=== PATIENT | female | born 1975 | race Caucasian/White ===

== ENCOUNTER 2018-04-19 11:07 | Inpatient (IN) ==
[2018-04-19] MEDS ORDERED: HYDROmorphone PF Inj 0.5 MG/0.5 ML Syringe IV.PUSH ONE ×2 (12:04→12:20)
[2018-04-19] MEDS ORDERED: HYDROmorphone PF Inj 2 MG/ML Vial IV.PUSH ONE ×2 (12:10→14:44)
--- NOTE | 2018-04-19 12:10 | ED ---
HPI General Chief complaint: Abdominal Pain Stated complaint: abd pain Time Seen by Provider: 04/19/18 11:24 History of Present Illness HPI narrative: 42-year-old female with a history of hypertension and diabetes presents to the emergency department for evaluation of abdominal pain, nausea, vomiting and diarrhea. Patient states that 3 months ago she started having severe abdominal pain and was seen at [facility]. States that she was diagnosed with 2 abdominal hernias, one above her umbilicus and one below. States that at the time they told her it was incarcerated and needed surgery however they decided to have her follow-up on Saturday since it was a Saturday to have the surgery. States that her insurance changed and they did not accept her insurance and therefore she did not follow-up. States that since then the pain has persisted and been progressively worsening. States now it is painful even for her to lie on her abdomen or when her abdomen bumps the counter. States that she has had frequent nausea and vomiting for the past 2 weeks as well and has had difficulty keeping down any food or fluids. States that over the past week she has had loose watery stools. Denies any constipation. States that last night and this morning she had 2 separate episodes of acute abdominal pain which she describes as feeling like her intestines were being twisted like a balloon animal. States that it resolved on its own. States that this concerned her which is what has brought her to the emergency department today. She denies any fever, chills, chest pain, shortness of breath , dysuria. Prior abdominal surgeries include appendectomy as a child. No other complaints or concerns. PCP Dr. Guillen in [place]. Related Data Home Medications Medication Instructions Recorded Confirmed valsartan [Diovan] 320 mg PO DAILY 04/19/18 04/19/18 Allergies Allergy/AdvReac Type Severity Reaction Status Date / Time tramadol Allergy Severe Fainting Verified 04/19/18 11:43 codeine AdvReac Intermediate Vomiting Verified 04/19/18 11:43 Review of Systems ROS: all other systems reviewed are negative [facility] Medical History Medical History Diabetes (Acute) HTN (hypertension) (Acute) Surgical History Surgical History H/O tubal ligation (Acute) History of appendectomy (Acute) Social History Social History Substance History: No History of Abuse Smoking Status: Former smoker How Often Do You Have a Drink Containing Alcohol: Never Recent Travel in [facility] within the Last 8 Weeks: No Recent Out of Country Travel within the Last 8 Weeks: No Immunization History Tetanus Immunization: <5 Years Exam Narrative Exam Narrative: GENERAL: Well-nourished and well-developed pleasant patient in no acute distress who is nontoxic appearing. SKIN: Warm and dry without any obvious rashes or lesions. HEAD: Normocephalic and atraumatic. EYES: No injection, drainage, or hyphema noted. PERRLA. EOMI. ENT: No nasal drainage noted. Oropharynx is clear. NECK: Supple and the trachea is midline. CARDIOVASCULAR: Regular rate and rhythm. RESPIRATORY: Breath sounds are equal bilaterally with no accessory muscle use, wheezing, rhonchi, or crackles. GASTROINTESTINAL: Protuberant abdomen. There is a palpable hernia above the umbilicus with tenderness to palpation. No other hernias palpated. Abdomen is soft and nondistended. No guarding. MUSCULOSKELETAL: No obvious deformities, swelling, cyanosis, or ecchymosis is present throughout the upper and lower extremities. Patient has full range of motion without any signs of neurovascular compromise. Distal pulses are 2+ throughout. NEUROLOGICAL: Awake, alert, and oriented. Normal speech and gait. Cranial nerves are grossly intact. Course Initial Documented Vital Signs Temperature 97.9 F 04/19/18 11:17 Pulse Rate 102 H 04/19/18 11:17 Respiratory Rate 16 04/19/18 11:17 Blood Pressure 195/102 H 04/19/18 11:17 Pulse Oximetry 94 L 04/19/18 11:17 Last Documented Vital Signs Temperature 97.9 F 04/19/18 11:17 Pulse Rate 86 04/19/18 15:32 Respiratory Rate 18 04/19/18 15:32 Blood Pressure 192/115 H 04/19/18 15:32 Pulse Oximetry 96 04/19/18 15:32 Medical Decision Making TRINA Attestation TRINA supervised visit: Yes Attestation: I, Dr. Mesa, have reviewed the advance practice practitioner's documentation and am in agreement, met with the patient face to face, made the diagnosis, and the medical decision making was done by me. *My assessment and Findings: Patient has umbilical hernia containing fat but there is some concern for incarceration. There are nonspecific changes on CT around the edges as well as small elevation of lactate. No bowel is in the hernia. We could not reduce it in the emergency room. Dr Fuentes will admit and consider operative repair. [facility] Narrative Medical decision making narrative: 42-year-old female presents to the ED for evaluation of abdominal pain, nausea, vomiting and diarrhea with hernia. Patient is afebrile. Patient is slightly tachycardic, blood pressure is elevated. IV access is obtained, labs been drawn and sent. Patient is placed on cardiac telemetry and pulse oximetry monitoring. CT of the abdomen and pelvis has been ordered and is pending. Patient is administered fluids, Zofran 4 mg IV and Dilaudid 1 mg. CBC shows slightly elevated WBC of 11.3. Lactic acid is slightly elevated at 2.5. CMP shows slightly elevated LFTs, otherwise unremarkable. Lactic acid is slightly elevated at 2.5. Urinalysis shows RBCs, no sign of infection. CT of the abdomen and pelvis shows small umbilical hernia containing mesenteric fat with some nonspecific soft tissue changes. Patient administered 2 mg Dilaudid IV and I attempted to reduced the hernia multiple times without result. I spoke with Dr. Fuentes general surgeon who requests patient to be admitted to [facility] and he will consult on her today. I spoke with Dr. Martini resident service who accepts admission under Dr. Toscano. Medical Screen Exam Complete: Yes Emergency Medical Condition: Yes Differential Diagnosis Differential Diagnosis: hernia versus incarcerated versus strangulated versus obstruction versus colitis versus diverticulitis Lab Data Result diagrams: 04/19/18 12:25 04/19/18 12:31 POC Results POC Urine Results Negative Lab Results 04/19/18 04/19/18 04/19/18 Range/Units 12:25 12:25 12:31 WBC 11.3 H (4.0-11.0) th/mm3 RBC 4.94 (4.00-5.30) mil/mm3 Hgb 15.2 (11.6-15.3) gm/dL Hct 44.7 (35.0-46.0) % MCV 90.5 (80.0-100.0) fL MCH 30.8 (27.0-34.0) pg MCHC 34.1 (32.0-36.0) % RDW 13.2 (11.6-17.2) % Plt Count 320 (150-450) th/mm3 MPV 7.8 (7.0-11.0) fL Neut % (Auto) 61.8 (16.0-70.0) % Lymph % (Auto) 30.2 (9.0-44.0) % [place] % (Auto) 6.3 (0.0-8.0) % Eos % (Auto) 0.9 (0.0-4.0) % Baso % (Auto) 0.8 (0.0-2.0) % Neut # (Auto) 7.0 (1.8-7.7) th/mm3 Lymph # (Auto) 3.4 (1.0-4.8) th/mm3 [place] # (Auto) 0.7 (0.0-0.9) th/mm3 Eos # (Auto) 0.1 (0.0-0.4) th/mm3 Baso # (Auto) 0.1 (0.0-0.2) th/mm3 WBC Differential . Differential Comment Auto diff final Sodium 137 (136-145) meq/L Potassium 4.1 (3.5-5.1) meq/L Chloride 104 (98-107) meq/L Carbon Dioxide 23.9 (21.0-32.0) meq/L Anion Gap 9 (5-15) meq/L BUN 8 (7-18) mg/dL Creatinine 0.68 (0.50-1.00) mg/dL Estimated GFR Greater than 89 (>89) mL/min Random Glucose 134 H (74-106) mg/dL Lactic Acid (0.4-2.0) mmol/L Calcium 8.7 (8.5-10.1) mg/dL Total Bilirubin 0.5 (0.2-1.0) mg/dL AST 40 H (15-37) U/L ALT 55 H (10-53) U/L Alkaline Phosphatase 107 (45-117) U/L Total Protein 7.5 (6.4-8.2) g/dL Albumin 3.7 (3.4-5.0) g/dL Lipase 67 L (73-393) U/L Urine Color Yellow (Yellw/Straw) Urine Clarity Hazy H (Clear) Urine pH 5.0 (5.0-8.5) Ur Specific [place] 1.023 (1.002-1.035) Urine Protein Negative (Neg-Trace) mg/dL Urine Glucose (UA) 50 (Negative) mg/dL Urine Ketones Negative (Negative) mg/dL Urine Occult Blood Large H (Negative) Urine Nitrate Negative (Negative) Urine Bilirubin Negative (Negative) Urine Urobilinogen Less than 2 (Less than 2) mg/dL Ur Leukocyte Esterase Negative (Negative) Urine RBC 116 H (0-3) /hpf Urine WBC 1 (0-5) /hpf Ur Squamous Epith Cells 6 (0-5) /hpf Urine Bacteria Rare H (None) /hpf Urine Mucus Few H (Occasional) /lpf Micro UA Comment Culture not ind Ur Microscopic Review Not Reportable Urine Culture Comments Culture not ind 04/19/18 Range/Units 12:32 WBC (4.0-11.0) th/mm3 RBC (4.00-5.30) mil/mm3 Hgb (11.6-15.3) gm/dL Hct (35.0-46.0) % MCV (80.0-100.0) fL MCH (27.0-34.0) pg MCHC (32.0-36.0) % RDW (11.6-17.2) % Plt Count (150-450) th/mm3 MPV (7.0-11.0) fL Neut % (Auto) (16.0-70.0) % Lymph % (Auto) (9.0-44.0) % [place] % (Auto) (0.0-8.0) % Eos % (Auto) (0.0-4.0) % Baso % (Auto) (0.0-2.0) % Neut # (Auto) (1.8-7.7) th/mm3 Lymph # (Auto) (1.0-4.8) th/mm3 [place] # (Auto) (0.0-0.9) th/mm3 Eos # (Auto) (0.0-0.4) th/mm3 Baso # (Auto) (0.0-0.2) th/mm3 WBC Differential Differential Comment Sodium (136-145) meq/L Potassium (3.5-5.1) meq/L Chloride (98-107) meq/L Carbon Dioxide (21.0-32.0) meq/L Anion Gap (5-15) meq/L BUN (7-18) mg/dL Creatinine (0.50-1.00) mg/dL Estimated GFR (>89) mL/min Random Glucose (74-106) mg/dL Lactic Acid 2.5 H (0.4-2.0) mmol/L Calcium (8.5-10.1) mg/dL Total Bilirubin (0.2-1.0) mg/dL AST (15-37) U/L ALT (10-53) U/L Alkaline Phosphatase (45-117) U/L Total Protein (6.4-8.2) g/dL Albumin (3.4-5.0) g/dL Lipase (73-393) U/L Urine Color (Yellw/Straw) Urine Clarity (Clear) Urine pH (5.0-8.5) Ur Specific [place] (1.002-1.035) Urine Protein (Neg-Trace) mg/dL Urine Glucose (UA) (Negative) mg/dL Urine Ketones (Negative) mg/dL Urine Occult Blood (Negative) Urine Nitrate (Negative) Urine Bilirubin (Negative) Urine Urobilinogen (Less than 2) mg/dL Ur Leukocyte Esterase (Negative) Urine RBC (0-3) /hpf Urine WBC (0-5) /hpf Ur Squamous Epith Cells (0-5) /hpf Urine Bacteria (None) /hpf Urine Mucus (Occasional) /lpf Micro UA Comment Ur Microscopic Review Urine Culture Comments Imaging Data Radiologist's impression: Abdomen/Pelvis CT 04/19/18 12:02 CONCLUSION: 1. Small umbilical hernia containing mesenteric fat with some nonspecific soft tissue changes. 2. Diffuse fatty infiltration of the liver. 3. There appear to be some stones in the gallbladder without biliary tract obstruction.. Discharge Plan Discharge Disposition Patient Disposition: 30 Still Patient Discharge Details Diagnosis: Incarcerated hernia Physicians Team ED Provider: Jonathan Mesa ED Midlevel Provider: Shu Botello Primary Care Provider: Yvon Guillen Rxs /Orders / Referrals /Forms Prescriptions: No Action valsartan [Diovan] 320 mg Tablet 320 mg PO DAILY RF: 0 Discharge Interventions Interventions: Vital Signs Last Done: 04/19/18 15:32 Status ED Status: With Doctor
[2018-04-19] MEDS ORDERED: Sod Chloride 0.9% Inj 1,000 ML IV.SIG SCH (12:15)
[2018-04-19 12:53] LABS: Baso # (Auto) 0.1 th/mm3 (0.0-0.2); Baso % (Auto) 0.8 % (0.0-2.0); Eos # (Auto) 0.1 th/mm3 (0.0-0.4); Eos % (Auto) 0.9 % (0.0-4.0); Hematocrit 44.7 % (35.0-46.0); Hemoglobin 15.2 gm/dL (11.6-15.3); Lymph # (Auto) 3.4 th/mm3 (1.0-4.8); Lymph % (Auto) 30.2 % (9.0-44.0); Mean Corpuscular HGB Conc 34.1 % (32.0-36.0); Mean Corpuscular Hemoglobin 30.8 pg (27.0-34.0); Mean Corpuscular Volume 90.5 fL (80.0-100.0); Mean Platelet Volume 7.8 fL (7.0-11.0); Mono # (Auto) 0.7 th/mm3 (0.0-0.9); Mono % (Auto) 6.3 % (0.0-8.0); Neut % (Auto) 61.8 % (16.0-70.0); Platelet Count 320 th/mm3 (150-450); Red Blood Count 4.94 mil/mm3 (4.00-5.30); Red Cell Distribution Width 13.2 % (11.6-17.2); White Blood Count 11.3 th/mm3 (4.0-11.0)
[2018-04-19 13:02] LABS: Bacteria,Urine Rare /hpf; Bilirubin,Urine Negative (Negative); Clarity,Urine Hazy (Clear); Color,Urine Yellow (Yellw/Straw); Glucose,Urine (UA) 50 mg/dL (Negative); Leukocyte Esterase,Urine Negative (Negative); Mucus,Urine Few /lpf (Occasional); Nitrite,Urine Negative (Negative); Specific Gravity,Urine 1.023 (1.002-1.035); Squamous Epithelial Cell,Urine 6 /hpf (0-5)
[2018-04-19 13:13] LABS: Alkaline Phosphatase 107 U/L (45-117); Total Protein 7.5 g/dL (6.4-8.2)
[2018-04-19 13:14] LABS: Alanine Aminotransferase 55 U/L (10-53); Albumin 3.7 g/dL (3.4-5.0); Anion Gap 9 meq/L (5-15); Aspartate Aminotransferase 40 U/L (15-37); Blood Urea Nitrogen 8 mg/dL (7-18); Calcium 8.7 mg/dL (8.5-10.1); Carbon Dioxide 23.9 meq/L (21.0-32.0); Chloride 104 meq/L (98-107); Glomerular Filtration Rate Greater Than 89 mL/min (>89); Glucose,Random 134 mg/dL (74-106); Lipase 67 U/L (73-393); Potassium 4.1 meq/L (3.5-5.1); Sodium 137 meq/L (136-145)
--- NOTE | 2018-04-19 14:09 | CT ---
EXAM DATE: 04/19/2018 1:20 PM EDT AGE/SEX: 42 years / Female INDICATIONS: Worsening lower abdomen pain for three days. CLINICAL DATA: This is the patient's initial encounter. Patient reports that signs and symptoms have been present for 3 days and indicates a pain score of 7/10. MEDICAL/SURGICAL HISTORY: Diabetes. Hypertension. Appendectomy. Tubal ligation. ORAL CONTRAST: No oral contrast ingested. RADIATION DOSE: 15.94 CTDI (mGy) COMPARISON: No prior exams available for comparison. TECHNIQUE: Multiple contiguous axial images were obtained through the abdomen and pelvis following b olus infusion of 96 ml Omnipaque 350 (iohexol) nonionic water-soluble contrast as a single exam dos e. No oral contrast ingested. Using automated exposure control and adjustment of the mA and/or kV ac cording to patient size, radiation dose was kept as low as reasonably achievable to obtain optimal di agnostic quality images. DICOM format image data is available electronically for review and comparis on. FINDINGS: Lower Lungs: The visualized lower lungs are clear. Liver: The liver has a homogeneous density without space-occupying lesion. There is diffuse fatty inf iltration throughout the liver. There is no dilation of the biliary tree. There appear to be some sto eliseo in the gallbladder without any surrounding inflammatory changes. The gallbladder is contracted. Spleen: Homogeneous density without enlargement. Pancreas: Unremarkable without mass or calcification. Kidneys: Normal in size and shape. No evidence of mass or hydronephrosis. 9 mm benign cyst left kidn ey. Adrenal Glands: Unremarkable. Aorta: The aorta and proximal iliac vessels are grossly unremarkable without aneurysmal dilation. Bowel/Mesentery: The bowel loops are grossly unremarkable. The cecum and sigmoid colon have a normal configuration. There is stool throughout the colon. No inflammatory changes are seen. No free fluid or free air is demonstrated. Abdominal Wall: There is a small umbilical hernia containing mesenteric fat. There is nonspecific so ft tissue changes associated with the hernia. Retroperitoneum: No evidence of adenopathy in the retrocrural, para-aortic, or deep pelvic regions. Bladder: Contours are smooth. Reproductive Organs: No abnormal masses or calcifications seen. Inguinal: The inguinal region is unremarkable without evidence of adenopathy. Bony Structures: Mild degenerative changes. CONCLUSION: 1. Small umbilical hernia containing mesenteric fat with some nonspecific soft tissue changes. 2. Diffuse fatty infiltration of the liver. 3. There appear to be some stones in the gallbladder without biliary tract obstruction.. Electronically signed by: Jorge Guzman MD 04/19/2018 2:08 PM EDT
--- NOTE | 2018-04-19 16:32 | P.HPFP ---
History of Present Illness Primary Care Physician: Yvon Guillen <Andrew Toscano K - 04/19/18 21:54> Yvon Guillen <Stephanie Martini T - 04/19/18 16:32> History of Present Illness: 42-year-old female with diabetes, hypertension, and known history of a umbilical hernia presents to the ED with worsening abdominal pain. Here with her ex-. Patient states that a couple months ago she was admitted at [facility] in [facility]. CT scan there demonstrated that she had 2 abdominal hernias. General surgery was consulted at that time was told to follow-up with them outpatient. Reports that she was unable to see them as an outpatient due to insurance issues. She states that her abdomen has been tender to the touch and has been worsening. She also has had nausea and vomiting for the last 2 weeks every day. She reports diarrhea as well for the last couple of days. Yesterday she felt like her stomach was getting "twisted like an animal balloon and felt so much pain." She decided that she did not want to come to the ED last night because of the long wait. She continues to have worsening abdominal pain and states that she could not wait any longer. She endorses chronic fatigue and weight gain (60lb gain since April). She denies fevers, night sweats, chills, chest pain, and shortness of breath. PMHx: Cervical stenosis C5-C7- bulging discs DM HTN PSHx: appendectomy tubal ligation Meds: Divan 320mg PO daily for blood pressure Metformin BID- couldn't get refill- only took 2 weeks worth Allergies: Codeine- projectile vomiting and tramadol, fainted FHx: Mom -alive Dad-prostate cancer- 80s HTN DM Hypothyroidsm Live: Live with ex- and 21 yr old son Unemployed Quit 2 years ago- smoke 3/4 pack a day, started at 14 years of age Alcohol use- occasional Denies Illicit drug use <Stephanie Martini T - 04/19/18 18:37> - Diagnosis (1) Diabetes (2) Hypertension (3) Incarcerated hernia <Andrew Toscano K - 04/19/18 21:54> (1) Diabetes (2) Hypertension (3) Incarcerated hernia <Stephanie Martini - 04/19/18 18:43> Inpatient Certification: I certify that the inpatient services were ordered in accordance with Medicare regulations governing the order. This includes certification that hospital inpatient services are reasonable and necessary and in the case of services not specified as inpatient-only under 42 CFR 419.22(n), that they are appropriately provided as inpatient services in accordance to with the 2-midnight benchmark under 43 CFR 412.3(e) <Andrew Toscano 04/19/18 21:53> Review of Systems Constitutional: Reports weight gain, Denies fever(s), Denies night sweats <Vini Stephaniealmaz Bender 04/19/18 18:42> Ears, Nose, Mouth, and Throat: Reports nasal congestion <Stephanie Martini 18:42> Cardiovascular: Denies chest pain, Denies shortness of breath <ViniStephanietisha Bender 04/19/18 18:42> Respiratory: Denies cough, Denies shortness of breath <Stephanie Martini 12/30 18:42> Gastrointestinal: Reports abdominal pain, Reports vomiting, Reports other <Vini Stephaniealmaz Bender 04/19/18 18:42> Genitourinary: Denies difficulty urinating <Stephanie Martini 04/19/18 18:42> Musculoskeletal: Denies joint pain <Stephanie Martini 04/19/18 18:42> Skin/Breast: Denies rash <ViniStephanietisha Bender 04/19/18 18:42> PMFSH - History History Provided By: Patient, Family Member <Stephanie Martini 04/19/18 16:32 > - Medical History Medical History: Medical History (Last Reviewed 04/19/18 @ 17:14 by Terrence Fuentes MD) Diabetes HTN (hypertension) <Andrew Toscano 04/19/18 21:53> Medical History (Last Reviewed 04/19/18 @ 17:14 by Terrence Fuentes MD) Diabetes HTN (hypertension) <Stephanie Martini 04/19/18 18:37> - Surgical History Surgical History: Surgical History (Last Reviewed 04/19/18 @ 17:14 by Terrence Fuentes MD) H/O tubal ligation History of appendectomy <Andrew Toscano - 04/19/18 21:53> Surgical History (Last Reviewed 04/19/18 @ 17:14 by Terrence Fuentes MD) H/O tubal ligation History of appendectomy <Stephanie Martini - 04/19/18 18:37> - Family History Family History: Family History (Last Updated 04/19/18 @ 18:37 by Stephanie Martini MD, R2) Other Diabetes Hypertension <Andrew Toscano 04/19/18 21:53> Family History (Last Updated 04/19/18 @ 18:37 by Stephanie Martini MD, R2) Other Diabetes Hypertension <Stephanie Martini - 04/19/18 18:42> - Tobacco History Tobacco Use In Past 30 Days: No <Stephanie Martini - 04/19/18 16:32> Smoking Status: Former smoker <Stephanie Martini - 04/19/18 16:32> - Alcohol History How Often Do You Have a Drink Containing Alcohol: Never <Stephanie Martiin - 16:32> - Substance Use History Substance History: No History of Abuse <Stephanie Martini - 04/19/18 16:32> - Travel History Recent Travel in the [place] Within the Last 8 Weeks: No <Stephanie Martini 04/19 16:32> Recent Travel Out of the Country Within the Last 8 Weeks: No <Stephanie Martini - 04/19/18 16:32> - Immunization History Tetanus Immunization: <5 Years <Stephanie Martini 04/19/18 16:32> Medications and Allergies Allergies Allergy/AdvReac Type Severity Reaction Status Date / Time tramadol Allergy Severe Fainting Verified 04/19/18 11:43 codeine AdvReac Intermediate Vomiting Verified 04/19/18 11:43 <Andrew Toscano 04/19/18 21:54> Home Medications Medication Instructions Recorded Confirmed Type valsartan [Diovan] 320 mg PO DAILY 04/19/18 04/19/18 History <Andrew Toscano 04/19/18 21:54> Active Medications: Active Medications Acetaminophen (Tylenol) 650 mg PO Q6HR PRN PRN Reason: PAIN SCALE 1 TO 2 Hydrocodone Bitart/Acetaminophen ([place] 5/325) 1 tab PO Q6H PRN PRN Reason: PAIN 1-10 AND/OR FEVER >101F Clonidine HCl (Catapres) 0.1 mg PO Q6H PRN PRN Reason: SEE LABEL COMMENTS Dextrose (D50w Vial) 50 ml IV.PUSH UNSCH PRN PRN Reason: PER HYPOGLYCEMIA PROTOCOL Glucagon (Glucagon Inj) 1 mg OTHER PRN PRN PRN Reason: for Hypoglycemia Protocol Hydromorphone HCl (Dilaudid Pf Inj) 0.5 mg IV.PUSH Q3H PRN PRN Reason: PAIN 3-5; IF UABLE TO TAKE PO Hydromorphone HCl (Dilaudid Pf Inj) 1 mg IV.PUSH Q3H PRN PRN Reason: PAIN 6-10;IF UNABLE TO TAKE PO Sodium Chloride (Ns Inj) 1,000 mls @ 0 mls/hr IV.SIG BOLUS RAIMUNDO Last Infusion: 04/19/18 13:40 Dose: Infused Sodium Chloride (Ns Inj) 1,000 mls @ 130 mls/hr IV.CONT .Q7H42M RAIMUNDO Last Admin: 04/19/18 19:15 Dose: 130 mls/hr Insulin Aspart (Novolog Insulin Correctional Sugar Inj) 0 unit SQ ACHS RAIMUNDO; Protocol Last Admin: 04/19/18 21:52 Dose: 3 unit Miscellaneous Information ([facility] [place] [facility]) 1 each OTHER UNSCH PRN PRN Reason: SEE LABEL COMMENTS Stop: 04/20/18 19:04 Naloxone HCl (Narcan Inj) 0.4 mg IV.PUSH UNSCH PRN PRN Reason: SEE LABEL COMMENTS Ondansetron HCl (Zofran Inj) 4 mg IV.PUSH Q6H PRN PRN Reason: NAUSEA OR VOMITING Sodium Chloride (Ns Flush) 2 ml IV.FLUSH PRN PRN PRN Reason: FLUSH AFTER USING IV ACCESS Last Admin: 04/19/18 12:40 Dose: 2 ml Valsartan (Diovan) 320 mg PO DAILY RAIMUNDO Last Admin: 04/19/18 21:14 Dose: Not Given <Andrew Toscano 04/19/18 21:54> Active Medications Sodium Chloride (Ns Inj) 1,000 mls @ 0 mls/hr IV.SIG BOLUS RAIMUNDO Last Infusion: 04/19/18 13:40 Dose: Infused Sodium Chloride (Ns Flush) 2 ml IV.FLUSH PRN PRN PRN Reason: FLUSH AFTER USING IV ACCESS Last Admin: 04/19/18 12:40 Dose: 2 ml <Stephanie Martini Yulia T - 04/19/18 16:32> Exam Vital signs: Vital Signs 04/19/18 11:17 04/19/18 12:38 04/19/18 15:32 Temperature 97.9 F Pulse Rate 102 H 90 86 Respiratory Rate 16 20 18 Blood Pressure 195/102 H 175/91 H 192/115 H Pulse Oximetry 94 L 95 96 04/19/18 16:00 04/19/18 17:08 04/19/18 17:27 Temperature Pulse Rate 92 H 88 Respiratory Rate 18 16 Blood Pressure 145/75 H 161/97 H Pulse Oximetry 95 96 04/19/18 18:47 04/19/18 19:15 04/19/18 20:00 Temperature 97.8 F 97.7 F 97.7 F Pulse Rate 101 H 84 83 Respiratory Rate 16 16 18 Blood Pressure 122/95 H 153/73 H 139/67 Pulse Oximetry 99 96 93 L Intake & Output 04/19/18 04/19/18 04/20/18 06:59 18:59 06:59 Intake Total 1750 / 1750 100 / 100 Output Total Balance 1740 / 1740 100 / 100 Weight 90.718 kg Intake: IV 1050 / 1050 NS Inj 1,000 ML @ Wide Open IV. 1000 / 1000 SIG BOLUS RAIMUNDO Rx#:[id number] Ancef 2 GM Premix Inj 2 gm In 50 / 50 50 ml @ 0 mls/hr IV.SIG .STK- MED ONE Rx#:[id number] Anesthesia Amount 700 / 700 Other 100 / 100 Output: Estimated Blood Loss <Andrew Toscano - 04/19/18 21:54> Vital Signs 04/19/18 11:17 04/19/18 12:38 04/19/18 15:32 Temperature 97.9 F Pulse Rate 102 H 90 86 Respiratory Rate 16 20 18 Blood Pressure 195/102 H 175/91 H 192/115 H Pulse Oximetry 94 L 95 96 Intake & Output 04/18/18 04/19/18 04/19/18 18:59 06:59 18:59 Intake Total 1000 / 1000 Balance 1000 / 1000 Weight 90.718 kg Intake: IV 999 / 1000 NS Inj 1,000 ML @ Wide Open IV. 1000 / 1000 SIG BOLUS RAIMUNDO Rx#:[id number] <Stephanie Martini T - 04/19/18 16:32> Narrative: General: Obese, no acute distress Skin: Warm and dry HEENT: PERRLA, EOMI Neck: No lymphadenopathy Cardiovascular: Regular rate and rhythm, no murmurs rubs or gallops Respiratory: Clear to auscultation bilaterally no wheezes or crackles Abdomen: Distended abdomen, small hard hernia palpable over the umbilicus, slightly tender, soft, no guarding Extremities: No cyanosis or edema <ViniStephanie Bender T - 04/19/18 18:42> Results - Labs Result diagrams: 04/19/18 12:25 04/19/18 12:31 <Andrew Toscano K - 04/19/18 21:54> Abnormal lab results 04/19/18 04/19/18 04/19/18 Range/Units 12:25 12:25 12:31 WBC 11.3 H (4.0-11.0) th/mm3 POC Glucose (68-110) mg/dl Random Glucose 134 H (74-106) mg/dL Lactic Acid (0.4-2.0) mmol/L AST 40 H (15-37) U/L ALT 55 H (10-53) U/L Lipase 67 L (73-393) U/L Urine Clarity Hazy H (Clear) Urine Occult Blood Large H (Negative) Urine RBC 116 H (0-3) /hpf Urine Bacteria Rare H (None) /hpf Urine Mucus Few H (Occasional) /lpf 04/19/18 04/19/18 Range/Units 12:32 21:40 WBC (4.0-11.0) th/mm3 POC Glucose 218 H (68-110) mg/dl Random Glucose (74-106) mg/dL Lactic Acid 2.5 H (0.4-2.0) mmol/L AST (15-37) U/L ALT (10-53) U/L Lipase (73-393) U/L Urine Clarity (Clear) Urine Occult Blood (Negative) Urine RBC (0-3) /hpf Urine Bacteria (None) /hpf Urine Mucus (Occasional) /lpf Short CBC 04/19/18 Range/Units 12:25 WBC 11.3 H (4.0-11.0) th/mm3 Hgb 15.2 (11.6-15.3) gm/dL Hct 44.7 (35.0-46.0) % Plt Count 320 (150-450) th/mm3 BMP 04/19/18 12:31 Sodium 137 Potassium 4.1 Chloride 104 Carbon Dioxide 23.9 BUN 8 Creatinine 0.68 Calcium 8.7 Liver Function 04/19/18 Range/Units 12:31 Total Bilirubin 0.5 (0.2-1.0) mg/dL AST 40 H (15-37) U/L ALT 55 H (10-53) U/L Alkaline Phosphatase 107 (45-117) U/L Albumin 3.7 (3.4-5.0) g/dL Urine 04/19/18 Range/Units 12:25 Urine Color Yellow (Yellw/Straw) Urine Clarity Hazy H (Clear) Urine pH 5.0 (5.0-8.5) Ur Specific [place] 1.023 (1.002-1.035) Urine Protein Negative (Neg-Trace) mg/dL Urine Glucose (UA) 50 (Negative) mg/dL <Andrew Toscano K - 04/19/18 21:54> Abnormal lab results 04/19/18 04/19/18 04/19/18 Range/Units 12:25 12:25 12:31 WBC 11.3 H (4.0-11.0) th/mm3 Random Glucose 134 H (74-106) mg/dL Lactic Acid (0.4-2.0) mmol/L AST 40 H (15-37) U/L ALT 55 H (10-53) U/L Lipase 67 L (73-393) U/L Urine Clarity Hazy H (Clear) Urine Occult Blood Large H (Negative) Urine RBC 116 H (0-3) /hpf Urine Bacteria Rare H (None) /hpf Urine Mucus Few H (Occasional) /lpf 04/19/18 Range/Units 12:32 WBC (4.0-11.0) th/mm3 Random Glucose (74-106) mg/dL Lactic Acid 2.5 H (0.4-2.0) mmol/L AST (15-37) U/L ALT (10-53) U/L Lipase (73-393) U/L Urine Clarity (Clear) Urine Occult Blood (Negative) Urine RBC (0-3) /hpf Urine Bacteria (None) /hpf Urine Mucus (Occasional) /lpf Short CBC 04/19/18 Range/Units 12:25 WBC 11.3 H (4.0-11.0) th/mm3 Hgb 15.2 (11.6-15.3) gm/dL Hct 44.7 (35.0-46.0) % Plt Count 320 (150-450) th/mm3 BMP 04/19/18 12:31 Sodium 137 Potassium 4.1 Chloride 104 Carbon Dioxide 23.9 BUN 8 Creatinine 0.68 Calcium 8.7 Liver Function 04/19/18 Range/Units 12:31 Total Bilirubin 0.5 (0.2-1.0) mg/dL AST 40 H (15-37) U/L ALT 55 H (10-53) U/L Alkaline Phosphatase 107 (45-117) U/L Albumin 3.7 (3.4-5.0) g/dL Urine 04/19/18 Range/Units 12:25 Urine Color Yellow (Yellw/Straw) Urine Clarity Hazy H (Clear) Urine pH 5.0 (5.0-8.5) Ur Specific [place] 1.023 (1.002-1.035) Urine Protein Negative (Neg-Trace) mg/dL Urine Glucose (UA) 50 (Negative) mg/dL <Stephanie Martini T - 04/19/18 16:32> - Imaging Impressions Abdomen/Pelvis CT 04/19/18 12:02 CONCLUSION: 1. Small umbilical hernia containing mesenteric fat with some nonspecific soft tissue changes. 2. Diffuse fatty infiltration of the liver. 3. There appear to be some stones in the gallbladder without biliary tract obstruction.. <Andrew Toscano K - 04/19/18 21:54> Impressions Abdomen/Pelvis CT 04/19/18 12:02 CONCLUSION: 1. Small umbilical hernia containing mesenteric fat with some nonspecific soft tissue changes. 2. Diffuse fatty infiltration of the liver. 3. There appear to be some stones in the gallbladder without biliary tract obstruction.. <Stephanie Martini T - 04/19/18 16:32> Caprini VTE Risk Assessment Caprini VTE Risk Assessment: No/Low Risk (score <= 1) <Thuan Martinitisha Bender T - 12/30 18:53> Caprini Risk Assessment Model: Point Value = 1 Point Value = 2 Point Value = 3 Point Value = 5 Age 41-60 Minor surgery BMI > 25 kg/m2 Swollen legs Varicose veins or History of unexplained or recurrent spontaneous Oral contraceptives or hormone replacement Sepsis (< 1 month) Serious lung disease, including pneumonia (< 1 month) Abnormal pulmonary function Acute myocardial infarction Congestive heart failure (< 1 month) History of inflammatory bowel disease Medical patient at bed rest Age 61-74 Arthroscopic surgery Major open surgery (> 45 min) Laparoscopic surgery (> 45 min) Malignancy Confined to bed (> 72 hours) Immobilizing plaster cast Central venous access Age >= 75 History of VTE Family history of VTE Factor V Leiden Prothrombin [id number] Lupus anticoagulant Anticardiolipin antibodies Elevated serum homocysteine Heparin-induced thrombocytopenia Other congenital or acquired thrombophilia Stroke (< 1 month) Elective arthroplasty Hip, pelvis, or leg fracture Acute spinal cord injury (< 1 month) <Andrew Toscano K - 04/19/18 21:54> Point Value = 1 Point Value = 2 Point Value = 3 Point Value = 5 Age 41-60 Minor surgery BMI > 25 kg/m2 Swollen legs Varicose veins or History of unexplained or recurrent spontaneous Oral contraceptives or hormone replacement Sepsis (< 1 month) Serious lung disease, including pneumonia (< 1 month) Abnormal pulmonary function Acute myocardial infarction Congestive heart failure (< 1 month) History of inflammatory bowel disease Medical patient at bed rest Age 61-74 Arthroscopic surgery Major open surgery (> 45 min) Laparoscopic surgery (> 45 min) Malignancy Confined to bed (> 72 hours) Immobilizing plaster cast Central venous access Age >= 75 History of VTE Family history of VTE Factor V Leiden Prothrombin [id number] Lupus anticoagulant Anticardiolipin antibodies Elevated serum homocysteine Heparin-induced thrombocytopenia Other congenital or acquired thrombophilia Stroke (< 1 month) Elective arthroplasty Hip, pelvis, or leg fracture Acute spinal cord injury (< 1 month) <ViniStephanie Bender T - 04/19/18 18:53> Prophylaxis Regimen: Total Risk Factor Score Risk Level Prophylaxis Regimen 0-1 Low Early ambulation 2 Moderate Order ONE of the following: *Sequential Compression Device (SCD) *Heparin 5000 units SQ BID 3-4 Higher Order ONE of the following medications: *Heparin 5000 units SQ TID *Enoxaparin/Lovenox 40 mg SQ daily (WT < 150 kg, CrCl > 30 mL/min) *Enoxaparin/Lovenox 30 mg SQ daily (WT < 150 kg, CrCl > 10-29 mL/min) *Enoxaparin/Lovenox 30 mg SQ BID (WT < 150 kg, CrCl > 30 mL/min) AND/OR *Sequential Compression Device (SCD) 5 or more Highest Order ONE of the following medications: *Heparin 5000 units SQ TID (Preferred with Epidurals) *Enoxaparin/Lovenox 40 mg SQ daily (WT < 150 kg, CrCl > 30 mL/min) *Enoxaparin/Lovenox 30 mg SQ daily (WT < 150 kg, CrCl > 10-29 mL/min) *Enoxaparin/Lovenox 30 mg SQ BID (WT < 150 kg, CrCl > 30 mL/min) AND *Sequential Compression Device (SCD) <Andrew Toscano - 04/19/18 21:54> Total Risk Factor Score Risk Level Prophylaxis Regimen 0-1 Low Early ambulation 2 Moderate Order ONE of the following: *Sequential Compression Device (SCD) *Heparin 5000 units SQ BID 3-4 Higher Order ONE of the following medications: *Heparin 5000 units SQ TID *Enoxaparin/Lovenox 40 mg SQ daily (WT < 150 kg, CrCl > 30 mL/min) *Enoxaparin/Lovenox 30 mg SQ daily (WT < 150 kg, CrCl > 10-29 mL/min) *Enoxaparin/Lovenox 30 mg SQ BID (WT < 150 kg, CrCl > 30 mL/min) AND/OR *Sequential Compression Device (SCD) 5 or more Highest Order ONE of the following medications: *Heparin 5000 units SQ TID (Preferred with Epidurals) *Enoxaparin/Lovenox 40 mg SQ daily (WT < 150 kg, CrCl > 30 mL/min) *Enoxaparin/Lovenox 30 mg SQ daily (WT < 150 kg, CrCl > 10-29 mL/min) *Enoxaparin/Lovenox 30 mg SQ BID (WT < 150 kg, CrCl > 30 mL/min) AND *Sequential Compression Device (SCD) <Stephanie Martini 04/19/18 16:32> Assessment and Plan - Assessment (1) Diabetes Code(s): E11.9 - Type 2 diabetes mellitus without complications Status: Acute (2) Hypertension Code(s): I10 - Essential (primary) hypertension Status: Acute (3) Incarcerated hernia Code(s): K46.0 - Unspecified abdominal hernia with obstruction, without gangrene Status: Acute <Andrew Toscano 04/19/18 21:54> (1) Diabetes Code(s): E11.9 - Type 2 diabetes mellitus without complications Status: Acute (2) Hypertension Code(s): I10 - Essential (primary) hypertension Status: Acute (3) Incarcerated hernia Code(s): K46.0 - Unspecified abdominal hernia with obstruction, without gangrene Status: Acute <Stephanie Martini 04/19/18 18:43> - Assessment and Plan 42-year-old female with diabetes and hypertension presents to the ED with worsening abdominal pain, found to have incarcerated umbilical hernia. General surgery consulted. Incarcerated hernia: -Vitals stable -WBC elevated 11.3 and LA 2.5 -AST of 40, ALT of 55, alk phos of 107, T bili of 0.5 -CT of abdomen demonstrate small umbilical hernia containing mesenteric fat with some nonspecific soft tissue changes. Diffuse fatty infiltration of the liver. There appears to be some stones in the gallbladder without biliary tract obstruction. -General surgery consulted, ER physician spoke with , patient will be taken to the OR tonight -N.p.o. -Maintenance fluids -Pain control with Dilaudid Diabetes: -Patient reports being prescribed metformin, however unable to afford -Accu-Cheks -Low-dose sliding scale -Hypoglycemic protocol in place Hypertension: -Continue home Valsartan 320mg daily -Clonidine 0.1mg PRN as needed for BP > 180/100 Diet: N.p.o. Fluids: NS fluid 130mls/hr Vitals every 4, monitor I's and O's DVTppx: SCDs, Patient will be started on Lovenox tomorrow <Stephanie Martini 04/19/18 18:53> - Attending Attestation Discussed with resident and reviewed documentation. agree with plan. <Andrew Toscano - 04/19/18 21:53>
[2018-04-19] MEDS ORDERED: Acetaminophen 325 MG Tablet PO PRN (17:06)
[2018-04-19] MEDS ORDERED: Naloxone Inj 0.4 MG/ML Vial IV.PUSH PRN (17:06)
[2018-04-19] MEDS ORDERED: HYDROmorphone PF Inj 2 MG/ML Vial IV.PUSH PRN ×2 (17:06)
[2018-04-19] MEDS ORDERED: Bupivacaine/Epinephrine Inj 0.25% 50 ML Vial ONE (17:07)
--- NOTE | 2018-04-19 17:12 | P.HP ---
History of Present Illness Service: CONSULTATION NOTE FOR SURGICAL ATTENDING, DR. MARCIANO FUENTES Primary Care Physician: Yvon Guillen Chief Complaint: Abdominal pain - Diagnosis (1) Incarcerated hernia Inpatient Certification: I certify that the inpatient services were ordered in accordance with Medicare regulations governing the order. This includes certification that hospital inpatient services are reasonable and necessary and in the case of services not specified as inpatient-only under 42 CFR 419.22(n), that they are appropriately provided as inpatient services in accordance to with the 2-midnight benchmark under 43 CFR 412.3(e) Estimated Total Length of Stay (Days): 2 Plans for Post Hospital Care: Home Review of Systems Patient has had about a 2-month history of intermittent umbilical pain she was evaluated at an outside hospital for umbilical pain found to have a hernia but for insurance reasons things were delayed and now the pain has become unbearable where she came into the emergency room. Been on and off for some time exacerbated recently CT shows incarcerated umbilical hernia. Also shown is incidental gallstone. surgery was consulted for evaluation All other systems reviewed negative except as stated in HPI PMFSH - History History Provided By: Patient, Family Member - Medical History Medical History: Medical History (Last Reviewed 04/19/18 @ 17:09 by Marciano Fuentes MD) Diabetes HTN (hypertension) - Surgical History Surgical History: Surgical History (Last Reviewed 04/19/18 @ 17:09 by Marciano Fuentes MD) H/O tubal ligation History of appendectomy - Social History I have reviewed the patient's Social History: Yes - Tobacco History Tobacco Use In Past 30 Days: No Smoking Status: Former smoker - Alcohol History How Often Do You Have a Drink Containing Alcohol: Never - Substance Use History Substance History: No History of Abuse - Travel History Recent Travel in the [facility] Within the Last 8 Weeks: No Recent Travel Out of the Country Within the Last 8 Weeks: No - Immunization History Tetanus Immunization: <5 Years Medications and Allergies Active Medications: Active Medications Sodium Chloride (Ns Inj) 1,000 mls @ 0 mls/hr IV.SIG BOLUS RAIMUNDO Last Infusion: 04/19/18 13:40 Dose: Infused Sodium Chloride (Ns Inj) 1,000 mls @ 130 mls/hr IV.CONT .Q7H42M RAIMUNDO Sodium Chloride (Ns Flush) 2 ml IV.FLUSH PRN PRN PRN Reason: FLUSH AFTER USING IV ACCESS Last Admin: 04/19/18 12:40 Dose: 2 ml Allergies Allergy/AdvReac Type Severity Reaction Status Date / Time tramadol Allergy Severe Fainting Verified 04/19/18 11:43 codeine AdvReac Intermediate Vomiting Verified 04/19/18 11:43 Home Medications Medication Instructions Recorded Confirmed Type valsartan [Diovan] 320 mg PO DAILY 04/19/18 04/19/18 History Exam Vital signs: Vital Signs 04/19/18 11:17 04/19/18 12:38 04/19/18 15:32 Temperature 97.9 F Pulse Rate 102 H 90 86 Respiratory Rate 16 20 18 Blood Pressure 195/102 H 175/91 H 192/115 H Pulse Oximetry 94 L 95 96 Intake & Output 04/18/18 04/19/18 04/19/18 18:59 06:59 18:59 Intake Total 1000 / 1000 Balance 1000 / 1000 Weight 90.718 kg Intake: IV 1000 / 1000 NS Inj 1,000 ML @ Wide Open IV. 1000 / 1000 SIG BOLUS RAIMUNDO Rx#:[id number] Narrative: Patient sitting in the room on the stretcher No apparent distress HEENT without abnormality Neck supple chest clear heart regular rate abdomen slightly obese soft with exquisite tenderness in the supraumbilical area where a umbilical hernia is palpated that is incarcerated. No Souther surgical scars. Extremities moves all extremities well no clubbing cyanosis or edema Skin numerous tattoos Results - Labs CBC & Chem 7: 04/19/18 12:25 04/19/18 12:31 Labs: Laboratory Results - last 24 hr 04/19/18 04/19/18 04/19/18 12:25 12:25 12:31 WBC 11.3 H RBC 4.94 Hgb 15.2 Hct 44.7 MCV 90.5 MCH 30.8 MCHC 34.1 RDW 13.2 Plt Count 320 MPV 7.8 Neut % (Auto) 61.8 Lymph % (Auto) 30.2 [place] % (Auto) 6.3 Eos % (Auto) 0.9 Baso % (Auto) 0.8 Neut # (Auto) 7.0 Lymph # (Auto) 3.4 [place] # (Auto) 0.7 Eos # (Auto) 0.1 Baso # (Auto) 0.1 WBC Differential . Differential Comment Auto diff final Sodium 137 Potassium 4.1 Chloride 104 Carbon Dioxide 23.9 Anion Gap 9 BUN 8 Creatinine 0.68 Estimated GFR Greater than 89 Random Glucose 134 H Lactic Acid Calcium 8.7 Total Bilirubin 0.5 AST 40 H ALT 55 H Alkaline Phosphatase 107 Total Protein 7.5 Albumin 3.7 Lipase 67 L Urine Color Yellow Urine Clarity Hazy H Urine pH 5.0 Ur Specific [place] 1.023 Urine Protein Negative Urine Glucose (UA) 50 Urine Ketones Negative Urine Occult Blood Large H Urine Nitrate Negative Urine Bilirubin Negative Urine Urobilinogen Less than 2 Ur Leukocyte Esterase Negative Urine RBC 116 H Urine WBC 1 Ur Squamous Epith Cells 6 Urine Bacteria Rare H Urine Mucus Few H Micro UA Comment Culture not ind Ur Microscopic Review Not Reportable Urine Culture Comments Culture not ind 04/19/18 12:32 WBC RBC Hgb Hct MCV MCH MCHC RDW Plt Count MPV Neut % (Auto) Lymph % (Auto) [place] % (Auto) Eos % (Auto) Baso % (Auto) Neut # (Auto) Lymph # (Auto) [place] # (Auto) Eos # (Auto) Baso # (Auto) WBC Differential Differential Comment Sodium Potassium Chloride Carbon Dioxide Anion Gap BUN Creatinine Estimated GFR Random Glucose Lactic Acid 2.5 H Calcium Total Bilirubin AST ALT Alkaline Phosphatase Total Protein Albumin Lipase Urine Color Urine Clarity Urine pH Ur Specific [place] Urine Protein Urine Glucose (UA) Urine Ketones Urine Occult Blood Urine Nitrate Urine Bilirubin Urine Urobilinogen Ur Leukocyte Esterase Urine RBC Urine WBC Ur Squamous Epith Cells Urine Bacteria Urine Mucus Micro UA Comment Ur Microscopic Review Urine Culture Comments - Imaging Impressions Abdomen/Pelvis CT 04/19/18 12:02 CONCLUSION: 1. Small umbilical hernia containing mesenteric fat with some nonspecific soft tissue changes. 2. Diffuse fatty infiltration of the liver. 3. There appear to be some stones in the gallbladder without biliary tract obstruction.. Caprini VTE Risk Assessment Caprini Risk Assessment Model: Point Value = 1 Point Value = 2 Point Value = 3 Point Value = 5 Age 41-60 Minor surgery BMI > 25 kg/m2 Swollen legs Varicose veins or History of unexplained or recurrent spontaneous Oral contraceptives or hormone replacement Sepsis (< 1 month) Serious lung disease, including pneumonia (< 1 month) Abnormal pulmonary function Acute myocardial infarction Congestive heart failure (< 1 month) History of inflammatory bowel disease Medical patient at bed rest Age 61-74 Arthroscopic surgery Major open surgery (> 45 min) Laparoscopic surgery (> 45 min) Malignancy Confined to bed (> 72 hours) Immobilizing plaster cast Central venous access Age >= 75 History of VTE Family history of VTE Factor V Leiden Prothrombin [id number] Lupus anticoagulant Anticardiolipin antibodies Elevated serum homocysteine Heparin-induced thrombocytopenia Other congenital or acquired thrombophilia Stroke (< 1 month) Elective arthroplasty Hip, pelvis, or leg fracture Acute spinal cord injury (< 1 month) Prophylaxis Regimen: Total Risk Factor Score Risk Level Prophylaxis Regimen 0-1 Low Early ambulation 2 Moderate Order ONE of the following: *Sequential Compression Device (SCD) *Heparin 5000 units SQ BID 3-4 Higher Order ONE of the following medications: *Heparin 5000 units SQ TID *Enoxaparin/Lovenox 40 mg SQ daily (WT < 150 kg, CrCl > 30 mL/min) *Enoxaparin/Lovenox 30 mg SQ daily (WT < 150 kg, CrCl > 10-29 mL/min) *Enoxaparin/Lovenox 30 mg SQ BID (WT < 150 kg, CrCl > 30 mL/min) AND/OR *Sequential Compression Device (SCD) 5 or more Highest Order ONE of the following medications: *Heparin 5000 units SQ TID (Preferred with Epidurals) *Enoxaparin/Lovenox 40 mg SQ daily (WT < 150 kg, CrCl > 30 mL/min) *Enoxaparin/Lovenox 30 mg SQ daily (WT < 150 kg, CrCl > 10-29 mL/min) *Enoxaparin/Lovenox 30 mg SQ BID (WT < 150 kg, CrCl > 30 mL/min) AND *Sequential Compression Device (SCD) Assessment and Plan - Assessment (1) Incarcerated hernia Code(s): K46.0 - Unspecified abdominal hernia with obstruction, without gangrene Status: Acute - Attending Attestation Consultation NOTE FOR SURGICAL ATTENDING, DR. MARCIANO FUENTES I agree with above assessment and plan. The exam, history, and the medical decision-making described in the above note were completed with the assistance of the mid-level provider. I reviewed and agree with the findings presented. I attest that I had a [id number] encounter with the patient on the same day, and personally performed and documented my assessment and findings in the medical record. The following services were provided during this hospital visit: Chart data review, vital sign assessments/reviewing monitor data Review of consultations notes if present. Medication orders/review and/or management Ordering and/or reviewing lab tests Ordering and/or interpreting/reviewing x-rays and/or diagnostic studies Care of the patient and discussion of the patient with the care team Documentation time To help prompt me to consider important information that might be impacting today's encounter and assessment, Information from prior notes written by myself or my colleagues may have been "brought forward/copy and pasted" into today's note.
--- NOTE | 2018-04-19 17:17 | P.CONGS ---
[facility] Gen Surgery Consult Note Consult date: 04/19/18 Reason for consult: abdominal pain Narrative: CONSULTATION NOTE FOR SURGICAL ATTENDING, DR. MARCIANO FUENTES Patient has had about a 2-month history of intermittent umbilical pain she was evaluated at an outside hospital for umbilical pain found to have a hernia but for insurance reasons things were delayed and now the pain has become unbearable where she came into the emergency room. Been on and off for some time exacerbated recently CT shows incarcerated umbilical hernia. Also shown is incidental gallstone. surgery was consulted for evaluation All other systems reviewed negative except as stated in [facility] - History History Provided By: Patient, Family Member - Medical History Medical History: Medical History (Last Reviewed 04/19/18 @ 17:14 by Marciano Fuentes MD) Diabetes HTN (hypertension) - Surgical History Surgical History: Surgical History (Last Reviewed 04/19/18 @ 17:14 by Marciano Fuentes MD) H/O tubal ligation History of appendectomy - Social History I have reviewed the patient's Social History: Yes - Tobacco History Tobacco Use In Past 30 Days: No Smoking Status: Former smoker - Alcohol History How Often Do You Have a Drink Containing Alcohol: Never - Substance Use History Substance History: No History of Abuse - Travel History Recent Travel in the [place] Within the Last 8 Weeks: No Recent Travel Out of the Country Within the Last 8 Weeks: No - Immunization History Tetanus Immunization: <5 Years Medications and Allergies Active Medications: Active Medications Acetaminophen (Tylenol) 650 mg PO Q6HR PRN PRN Reason: PAIN SCALE 1 TO 2 Hydromorphone HCl (Dilaudid Pf Inj) 0.5 mg IV.PUSH Q3H PRN PRN Reason: PAIN 3-5; IF UABLE TO TAKE PO Hydromorphone HCl (Dilaudid Pf Inj) 1 mg IV.PUSH Q3H PRN PRN Reason: PAIN 6-10;IF UNABLE TO TAKE PO Sodium Chloride (Ns Inj) 1,000 mls @ 0 mls/hr IV.SIG BOLUS RAIMUNDO Last Infusion: 04/19/18 13:40 Dose: Infused Sodium Chloride (Ns Inj) 1,000 mls @ 130 mls/hr IV.CONT .Q7H42M RAIMUNDO Naloxone HCl (Narcan Inj) 0.4 mg IV.PUSH UNSCH PRN PRN Reason: SEE LABEL COMMENTS Sodium Chloride (Ns Flush) 2 ml IV.FLUSH PRN PRN PRN Reason: FLUSH AFTER USING IV ACCESS Last Admin: 04/19/18 12:40 Dose: 2 ml Allergies Allergy/AdvReac Type Severity Reaction Status Date / Time tramadol Allergy Severe Fainting Verified 04/19/18 11:43 codeine AdvReac Intermediate Vomiting Verified 04/19/18 11:43 Home Medications Medication Instructions Recorded Confirmed Type valsartan [Diovan] 320 mg PO DAILY 04/19/18 04/19/18 History Exam Vital signs: Vital Signs 04/19/18 11:17 04/19/18 12:38 04/19/18 15:32 Temperature 97.9 F Pulse Rate 102 H 90 86 Respiratory Rate 16 20 18 Blood Pressure 195/102 H 175/91 H 192/115 H Pulse Oximetry 94 L 95 96 04/19/18 17:08 Temperature Pulse Rate Respiratory Rate Blood Pressure Pulse Oximetry 96 Intake & Output 04/18/18 04/19/18 04/19/18 18:59 06:59 18:59 Intake Total 1000 / 1000 Balance 1000 / 1000 Weight 90.718 kg Intake: IV 1000 / 1000 NS Inj 1,000 ML @ Wide Open IV. 1000 / 1000 SIG BOLUS RAIMUNDO Rx#:[id number] Narrative: Neurologic patient alert oriented slightly uncomfortable HEENT without abnormality Cardiovascular regular rate and rhythm Lungs/pulmonary clear Abdomen slightly obese soft exquisite tenderness supraumbilical area with an incarcerated umbilical hernia Extremities moves all extremities well Skin exam tattoos Results - Labs 04/19/18 12:25 04/19/18 12:31 Laboratory Results - last 24 hr 04/19/18 04/19/18 04/19/18 12:25 12:25 12:31 WBC 11.3 H RBC 4.94 Hgb 15.2 Hct 44.7 MCV 90.5 MCH 30.8 MCHC 34.1 RDW 13.2 Plt Count 320 MPV 7.8 Neut % (Auto) 61.8 Lymph % (Auto) 30.2 [place] % (Auto) 6.3 Eos % (Auto) 0.9 Baso % (Auto) 0.8 Neut # (Auto) 7.0 Lymph # (Auto) 3.4 [place] # (Auto) 0.7 Eos # (Auto) 0.1 Baso # (Auto) 0.1 WBC Differential . Differential Comment Auto diff final Sodium 137 Potassium 4.1 Chloride 104 Carbon Dioxide 23.9 Anion Gap 9 BUN 8 Creatinine 0.68 Estimated GFR Greater than 89 Random Glucose 134 H Lactic Acid Calcium 8.7 Total Bilirubin 0.5 AST 40 H ALT 55 H Alkaline Phosphatase 107 Total Protein 7.5 Albumin 3.7 Lipase 67 L Urine Color Yellow Urine Clarity Hazy H Urine pH 5.0 Ur Specific [place] 1.023 Urine Protein Negative Urine Glucose (UA) 50 Urine Ketones Negative Urine Occult Blood Large H Urine Nitrate Negative Urine Bilirubin Negative Urine Urobilinogen Less than 2 Ur Leukocyte Esterase Negative Urine RBC 116 H Urine WBC 1 Ur Squamous Epith Cells 6 Urine Bacteria Rare H Urine Mucus Few H Micro UA Comment Culture not ind Ur Microscopic Review Not Reportable Urine Culture Comments Culture not ind 04/19/18 12:32 WBC RBC Hgb Hct MCV MCH MCHC RDW Plt Count MPV Neut % (Auto) Lymph % (Auto) [place] % (Auto) Eos % (Auto) Baso % (Auto) Neut # (Auto) Lymph # (Auto) [place] # (Auto) Eos # (Auto) Baso # (Auto) WBC Differential Differential Comment Sodium Potassium Chloride Carbon Dioxide Anion Gap BUN Creatinine Estimated GFR Random Glucose Lactic Acid 2.5 H Calcium Total Bilirubin AST ALT Alkaline Phosphatase Total Protein Albumin Lipase Urine Color Urine Clarity Urine pH Ur Specific [place] Urine Protein Urine Glucose (UA) Urine Ketones Urine Occult Blood Urine Nitrate Urine Bilirubin Urine Urobilinogen Ur Leukocyte Esterase Urine RBC Urine WBC Ur Squamous Epith Cells Urine Bacteria Urine Mucus Micro UA Comment Ur Microscopic Review Urine Culture Comments - Imaging Imaging: ITS Impressions Abdomen/Pelvis CT 04/19/18 12:02 CONCLUSION: 1. Small umbilical hernia containing mesenteric fat with some nonspecific soft tissue changes. 2. Diffuse fatty infiltration of the liver. 3. There appear to be some stones in the gallbladder without biliary tract obstruction.. CT scan - abdomen: report reviewed, image reviewed CT scan - pelvis: report reviewed, image reviewed Assessment and Plan - Assessment (1) Incarcerated hernia Code(s): K46.0 - Unspecified abdominal hernia with obstruction, without gangrene Status: Acute - Plan Patient has a incarcerated umbilical hernia that is fairly symptomatic. She has incidental findings of gallstones on the CT scan I could not elicit any symptomatology consistent with biliary colic Plan operative intervention to repair reduce the incarcerated umbilical hernia this was discussed with the patient in detail she and her significant other in the room appeared to understand I have called the operating room they are making arrangements for obtaining operative time - Attending Attestation CONSULTATION NOTE FOR SURGICAL ATTENDING, DR. MARCIANO FUENTES I agree with above assessment and plan. The exam, history, and the medical decision-making described in the above note were completed with the assistance of the mid-level provider. I reviewed and agree with the findings presented. I attest that I had a [id number] encounter with the patient on the same day, and personally performed and documented my assessment and findings in the medical record. The following services were provided during this hospital visit: Chart data review, vital sign assessments/reviewing monitor data Review of consultations notes if present. Medication orders/review and/or management Ordering and/or reviewing lab tests Ordering and/or interpreting/reviewing x-rays and/or diagnostic studies Care of the patient and discussion of the patient with the care team Documentation time To help prompt me to consider important information that might be impacting today's encounter and assessment, Information from prior notes written by myself or my colleagues may have been "brought forward/copy and pasted" into today's note.
[2018-04-19] MEDS ORDERED: fentaNYL Citrate Inj 100 MCG/2 ML Ampul ONE (17:20)
[2018-04-19] MEDS ORDERED: Succinylcholine Inj 100 MG/5 ML Syringe IV.PUSH ONE (17:40)
[2018-04-19] MEDS ORDERED: Lidocaine PF 1% Inj 5 ML Syringe OTHER ONE (17:40)
[2018-04-19] MEDS ORDERED: ceFAZolin 2 GM Premix Inj 2 GM/50 ML PIGGYBACK IV.SIG ONE (17:57)
[2018-04-19] MEDS ORDERED: Dextrose 50% in Water 50 ML Vial IV.PUSH PRN (17:57)
[2018-04-19] MEDS ORDERED: Sugammadex Inj 200 MG/2 ML Vial IV.PUSH ONE (18:20)
[2018-04-19] MEDS ORDERED: MethylPREDNISolone Sod Succinate Inj 125 MG/2 ML Vial ONE (18:46)
--- NOTE | 2018-04-19 19:00 | MP ---
cc: Terrence Fuentes MD, Joseph D MD DATE OF OPERATION: 04/19/2018 PREOPERATIVE DIAGNOSIS: Incarcerated supraumbilical hernia. POSTOPERATIVE DIAGNOSIS: Incarcerated supraumbilical hernia with infarcted omentum and hernia sac. PROCEDURE PERFORMED: Reduction of incarcerated umbilical hernia with resection of incarcerated necrotic omentum. ANESTHESIA: General. SURGEON: Terrence Fuentes MD INDICATIONS FOR PROCEDURE: This is a pleasant 42-year-old female who has had a supraumbilical hernia. It is becoming more symptomatic. Plans were made for repair. DESCRIPTION OF PROCEDURE: The patient was taken to the operating room and placed in the supine position. After anesthesia, her abdomen was prepped with Betadine. Timeout was done. She was given preoperative antibiotics. We made an incision above the umbilicus, an elliptical incision because she has a previous scar there and this is excised. We dissected down to the supraumbilical subcutaneous tissue, identifying the incarcerated hernia sac with a purplish discoloration. After that, we were able to identify this is incarcerated omentum entering the hernia sac. The omentum was carefully teased away from more viable omentum and cauterized to assure hemostasis. Once this was done, we could feel the fascia circumferentially. We dissected off the subcutaneous tissue from the fascia circumferentially. We were able to close this somewhat horizontal defect with interrupted 0 Ethibond sutures to reapproximate the fascial defect. We then closed the deep layer with 3-0 Vicryl and the skin was closed with 4-0 Vicryl. Steri-Strips were applied. Sterile bandage applied. The patient tolerated the procedure well. No immediate postop complication. Terrence Fuentes MD JDB/ct , 06:32 PM , 06:37 PM
[2018-04-19] MEDS: Sod Chloride 0.9% Inj 1,000 ML IV.CONT SCH (19:15)
[2018-04-19] MEDS: Insulin NovoLOG Aspart Correctional Sugar Inj SQ SCH (21:52)
[2018-04-20] MEDS: Sod Chloride 0.9% Inj 1,000 ML IV.CONT SCH ×3 (02:55→17:32)
[2018-04-20] MEDS: Insulin NovoLOG Aspart Correctional Sugar Inj SQ SCH ×2 (08:00→17:31)
[2018-04-20 08:30] LABS: Hematocrit 40.8 % (35.0-46.0); Hemoglobin 13.8 gm/dL (11.6-15.3); Mean Corpuscular HGB Conc 33.7 % (32.0-36.0); Mean Corpuscular Hemoglobin 30.6 pg (27.0-34.0); Mean Corpuscular Volume 90.7 fL (80.0-100.0); Platelet Count 307 th/mm3 (150-450); White Blood Count 13.4 th/mm3 (4.0-11.0)
[2018-04-20 08:49] LABS: Anion Gap 11 meq/L (5-15); Blood Urea Nitrogen 5 mg/dL (7-18); Calcium 8.5 mg/dL (8.5-10.1); Carbon Dioxide 24.2 meq/L (21.0-32.0); Chloride 102 meq/L (98-107); Glomerular Filtration Rate Greater Than 89 mL/min (>89); Glucose,Random 206 mg/dL (74-106); Potassium 4.2 meq/L (3.5-5.1); Sodium 137 meq/L (136-145)
--- NOTE | 2018-04-20 11:43 | P.HPFP ---
History of Present Illness Primary Care Physician: Yvon Guillen History of Present Illness: I personally reviewed history below from admission from resident H&P "42-year-old female with diabetes, hypertension, and known history of a umbilical hernia presents to the ED with worsening abdominal pain. Here with her ex-. Patient states that a couple months ago she was admitted at [facility] in [facility]. CT scan there demonstrated that she had 2 abdominal hernias. General surgery was consulted at that time was told to follow-up with them outpatient. Reports that she was unable to see them as an outpatient due to insurance issues. She states that her abdomen has been tender to the touch and has been worsening. She also has had nausea and vomiting for the last 2 weeks every day. She reports diarrhea as well for the last couple of days. Yesterday she felt like her stomach was getting "twisted like an animal balloon and felt so much pain." She decided that she did not want to come to the ED last night because of the long wait. She continues to have worsening abdominal pain and states that she could not wait any longer. She endorses chronic fatigue and weight gain (60lb gain since April). She denies fevers, night sweats, chills, chest pain, and shortness of breath." Will add interval history: Taken to [place] by Dr Hamm for reduction of incarcerated umbilical hernia and repair and removal of necrotic omentum. no bowel resection necessary. Patient is now on a regular diet and she is tolerating well. she is ambulating and urinating well and she is passing flatus. she required miminal pain medications overnight but her pain is well controlled now. No BM yet. no n/v/f/c. She has no leg pain today. She is wanting to go home. i personally reviewed history below as written by resident and edited as necessary: PMHx: Cervical stenosis C5-C7- bulging discs DM HTN PSHx: appendectomy tubal ligation Meds: Divan 320mg PO daily for blood pressure Metformin BID- couldn't get refill- only took 2 weeks worth Allergies: Codeine- projectile vomiting and tramadol, fainted FHx: Mom -alive Dad-prostate cancer- 80s HTN DM Hypothyroidsm Live: Live with ex- and 21 yr old son Unemployed Quit 2 years ago- smoke 3/4 pack a day, started at 14 years of age Alcohol use- occasional Denies Illicit drug use - Diagnosis (1) Diabetes (2) Hypertension (3) Incarcerated hernia Inpatient Certification: I certify that the inpatient services were ordered in accordance with Medicare regulations governing the order. This includes certification that hospital inpatient services are reasonable and necessary and in the case of services not specified as inpatient-only under 42 CFR 419.22(n), that they are appropriately provided as inpatient services in accordance to with the 2-midnight benchmark under 43 CFR 412.3(e) Estimated Total Length of Stay (Days): 2 Plans for Post Hospital Care: Home [facility] - History History Provided By: Patient - Medical History Medical History: Medical History (Last Reviewed 04/20/18 @ 08:01 by America Vivas) Diabetes HTN (hypertension) - Surgical History Surgical History: Surgical History (Last Reviewed 04/20/18 @ 08:01 by America Vivas) H/O tubal ligation History of appendectomy - Family History Family History: Family History (Last Reviewed 04/19/18 @ 21:22 by Luana Hidalgo RN) Other Diabetes Hypertension - Tobacco History Second Hand Smoke Exposure: No Tobacco Use In Past 30 Days: No Smoking Status: Former smoker - Alcohol History How Often Do You Have a Drink Containing Alcohol: Monthly or less - Substance Use History Substance History: No History of Abuse - Travel History Recent Travel in the [place] Within the Last 8 Weeks: No Recent Travel Out of the Country Within the Last 8 Weeks: No - Immunization History Tetanus Immunization: Unsure Hx Influenza Vaccine This Season: No Medications and Allergies Active Medications: Active Medications Acetaminophen (Tylenol) 650 mg PO Q6HR PRN PRN Reason: PAIN SCALE 1 TO 2 Hydrocodone Bitart/Acetaminophen ([place] 5/325) 1 tab PO Q6H PRN PRN Reason: PAIN 1-10 AND/OR FEVER >101F Last Admin: 04/20/18 10:36 Dose: 1 tab Clonidine HCl (Catapres) 0.1 mg PO Q6H PRN PRN Reason: SEE LABEL COMMENTS Dextrose (D50w Vial) 50 ml IV.PUSH UNSCH PRN PRN Reason: PER HYPOGLYCEMIA PROTOCOL Enoxaparin Sodium (Lovenox Inj) 40 mg SQ Q24H RAIMUNDO Glucagon (Glucagon Inj) 1 mg OTHER PRN PRN PRN Reason: for Hypoglycemia Protocol Hydromorphone HCl (Dilaudid Pf Inj) 0.5 mg IV.PUSH Q3H PRN PRN Reason: PAIN 3-5; IF UABLE TO TAKE PO Hydromorphone HCl (Dilaudid Pf Inj) 1 mg IV.PUSH Q3H PRN PRN Reason: PAIN 6-10;IF UNABLE TO TAKE PO Last Admin: 04/20/18 02:34 Dose: 1 mg Sodium Chloride (Ns Inj) 1,000 mls @ 0 mls/hr IV.SIG BOLUS [facility] Last Infusion: 04/19/18 13:40 Dose: Infused Sodium Chloride (Ns Inj) 1,000 mls @ 130 mls/hr IV.CONT .Q7H42M [facility] Last Admin: 04/20/18 09:38 Dose: Not Given Insulin Aspart (Novolog Insulin Correctional Sugar Inj) 0 unit SQ ACHS [facility]; Protocol Last Admin: 04/20/18 08:00 Dose: 5 unit Miscellaneous Information ([facility]) 1 each OTHER UNSCH PRN PRN Reason: SEE LABEL COMMENTS Stop: 04/20/18 19:04 Naloxone HCl (Narcan Inj) 0.4 mg IV.PUSH UNSCH PRN PRN Reason: SEE LABEL COMMENTS Ondansetron HCl (Zofran Inj) 4 mg IV.PUSH Q6H PRN PRN Reason: NAUSEA OR VOMITING Sodium Chloride (Ns Flush) 2 ml IV.FLUSH PRN PRN PRN Reason: FLUSH AFTER USING IV ACCESS Last Admin: 04/19/18 12:40 Dose: 2 ml Valsartan (Diovan) 320 mg PO DAILY [facility] Last Admin: 04/20/18 09:38 Dose: Not Given Allergies Allergy/AdvReac Type Severity Reaction Status Date / Time tramadol Allergy Severe Fainting Verified 04/19/18 11:43 codeine AdvReac Intermediate Vomiting Verified 04/19/18 11:43 Home Medications Medication Instructions Recorded Confirmed Type valsartan [Diovan] 320 mg PO DAILY 04/19/18 04/19/18 History Exam Vital signs: Vital Signs 04/19/18 12:38 04/19/18 15:32 04/19/18 16:00 Temperature Pulse Rate 90 86 92 H Respiratory Rate 20 18 18 Blood Pressure 175/91 H 192/115 H 145/75 H Pulse Oximetry 95 96 95 04/19/18 17:08 04/19/18 17:27 04/19/18 18:47 Temperature 97.8 F Pulse Rate 88 101 H Respiratory Rate 16 16 Blood Pressure 161/97 H 122/95 H Pulse Oximetry 96 99 04/19/18 19:15 04/19/18 20:00 04/19/18 22:35 Temperature 97.7 F 97.7 F Pulse Rate 84 83 Respiratory Rate 16 18 18 Blood Pressure 153/73 H 139/67 Pulse Oximetry 96 93 L 04/20/18 00:00 04/20/18 02:55 04/20/18 04:00 Temperature 97.7 F 97.9 F Pulse Rate 96 H 84 Respiratory Rate 18 17 17 Blood Pressure 159/72 H 130/72 Pulse Oximetry 93 L 94 L 04/20/18 05:54 04/20/18 08:00 Temperature 98.3 F Pulse Rate 90 Respiratory Rate 18 16 Blood Pressure 144/70 H Pulse Oximetry 98 Intake & Output 04/19/18 04/20/18 04/20/18 18:59 06:59 18:59 Intake Total 1750 / 1750 1100 / 1100 Output Total 10 Balance 1740 / 1740 1100 / 1100 Weight 90.718 kg 90.718 kg Intake: IV 1050 / 1050 1000 / 1000 NS Inj 1,000 ML @ 130 mls/hr IV 1000 / 1000 .CONT .Q7H42M [facility] Rx#:[id number] NS Inj 1,000 ML @ Wide Open IV. 1000 / 1000 SIG BOLUS [facility] Rx#:[id number] Ancef 2 GM Premix Inj 2 gm In 50 / 50 50 ml @ 0 mls/hr IV.SIG .STK- [facility] Rx#:[id number] Anesthesia Amount 700 / 700 Other 100 / 100 Output: Estimated Blood Loss 10 Other: Date of Last Bowel Movement 04/19/18 Weight On Admission 90.718 kg - Constitutional no acute distress, obese, cooperative - Routine HEENT Exam Head: Present: normocephalic, atraumatic Eye: Present: EOMI, PERRL. Absent: conjunctival icterus, scleral injection ENT: Present: mucous membranes moist - Routine Neck Exam Present: supple, full ROM. Absent: tracheal deviation - Routine Chest/Breast/Axilla Exam Chest wall: Absent: tenderness - Routine Respiratory Exam Present: CTA bilaterally. Absent: accessory muscle use, prolonged expiratory phase, rales, respiratory distress, rhonchi, wheezes - Routine Cardiovascular Exam Present: RRR, S1, S2. Absent: murmur - Routine Abdominal Exam Present: soft, normoactive bowel sounds. Absent: tenderness, distended, rebound , guarding Comments: dressing over umbilicus c/d/i. abdominal binder on. - Routine Extremities Exam Absent: cyanosis, clubbing, edema, calf tenderness - Routine Skin Exam Present: intact, dry, warm. Absent: cyanosis, erythema Comments: tatooes - Routine Neurological Exam Present: alert, oriented X3. Absent: facial asymmetry Results - Labs Result diagrams: 04/20/18 07:02 04/20/18 07:02 Abnormal lab results 04/19/18 04/19/18 04/19/18 Range/Units 12:25 12:25 12:31 WBC 11.3 H (4.0-11.0) th/mm3 BUN (7-18) mg/dL POC Glucose (68-110) mg/dl Random Glucose 134 H (74-106) mg/dL Lactic Acid (0.4-2.0) mmol/L AST 40 H (15-37) U/L ALT 55 H (10-53) U/L Lipase 67 L (73-393) U/L Urine Clarity Hazy H (Clear) Urine Occult Blood Large H (Negative) Urine RBC 116 H (0-3) /hpf Urine Bacteria Rare H (None) /hpf Urine Mucus Few H (Occasional) /lpf 04/19/18 04/19/18 04/20/18 Range/Units 12:32 21:40 07:02 WBC 13.4 H (4.0-11.0) th/mm3 BUN (7-18) mg/dL POC Glucose 218 H (68-110) mg/dl Random Glucose (74-106) mg/dL Lactic Acid 2.5 H (0.4-2.0) mmol/L AST (15-37) U/L ALT (10-53) U/L Lipase (73-393) U/L Urine Clarity (Clear) Urine Occult Blood (Negative) Urine RBC (0-3) /hpf Urine Bacteria (None) /hpf Urine Mucus (Occasional) /lpf 04/20/18 Range/Units 07:02 WBC (4.0-11.0) th/mm3 BUN 5 L (7-18) mg/dL POC Glucose (68-110) mg/dl Random Glucose 206 H (74-106) mg/dL Lactic Acid (0.4-2.0) mmol/L AST (15-37) U/L ALT (10-53) U/L Lipase (73-393) U/L Urine Clarity (Clear) Urine Occult Blood (Negative) Urine RBC (0-3) /hpf Urine Bacteria (None) /hpf Urine Mucus (Occasional) /lpf Short CBC 04/19/18 04/20/18 Range/Units 12:25 07:02 WBC 11.3 H 13.4 H (4.0-11.0) th/mm3 Hgb 15.2 13.8 (11.6-15.3) gm/dL Hct 44.7 40.8 (35.0-46.0) % Plt Count 320 307 (150-450) th/mm3 BMP 04/19/18 04/20/18 12:31 07:02 Sodium 137 137 Potassium 4.1 4.2 Chloride 104 102 Carbon Dioxide 23.9 24.2 BUN 8 5 L Creatinine 0.68 0.54 Calcium 8.7 8.5 Liver Function 04/19/18 Range/Units 12:31 Total Bilirubin 0.5 (0.2-1.0) mg/dL AST 40 H (15-37) U/L ALT 55 H (10-53) U/L Alkaline Phosphatase 107 (45-117) U/L Albumin 3.7 (3.4-5.0) g/dL Urine 04/19/18 Range/Units 12:25 Urine Color Yellow (Yellw/Straw) Urine Clarity Hazy H (Clear) Urine pH 5.0 (5.0-8.5) Ur Specific [place] 1.023 (1.002-1.035) Urine Protein Negative (Neg-Trace) mg/dL Urine Glucose (UA) 50 (Negative) mg/dL - Imaging Impressions Abdomen/Pelvis CT 04/19/18 12:02 CONCLUSION: 1. Small umbilical hernia containing mesenteric fat with some nonspecific soft tissue changes. 2. Diffuse fatty infiltration of the liver. 3. There appear to be some stones in the gallbladder without biliary tract obstruction.. Caprini VTE Risk Assessment Caprini VTE Risk Assessment: No/Low Risk (score <= 1) Caprini Risk Assessment Model: Point Value = 1 Point Value = 2 Point Value = 3 Point Value = 5 Age 41-60 Minor surgery BMI > 25 kg/m2 Swollen legs Varicose veins or History of unexplained or recurrent spontaneous Oral contraceptives or hormone replacement Sepsis (< 1 month) Serious lung disease, including pneumonia (< 1 month) Abnormal pulmonary function Acute myocardial infarction Congestive heart failure (< 1 month) History of inflammatory bowel disease Medical patient at bed rest Age 61-74 Arthroscopic surgery Major open surgery (> 45 min) Laparoscopic surgery (> 45 min) Malignancy Confined to bed (> 72 hours) Immobilizing plaster cast Central venous access Age >= 75 History of VTE Family history of VTE Factor V Leiden Prothrombin [id number] Lupus anticoagulant Anticardiolipin antibodies Elevated serum homocysteine Heparin-induced thrombocytopenia Other congenital or acquired thrombophilia Stroke (< 1 month) Elective arthroplasty Hip, pelvis, or leg fracture Acute spinal cord injury (< 1 month) Prophylaxis Regimen: Total Risk Factor Score Risk Level Prophylaxis Regimen 0-1 Low Early ambulation 2 Moderate Order ONE of the following: *Sequential Compression Device (SCD) *Heparin 5000 units SQ BID 3-4 Higher Order ONE of the following medications: *Heparin 5000 units SQ TID *Enoxaparin/Lovenox 40 mg SQ daily (WT < 150 kg, CrCl > 30 mL/min) *Enoxaparin/Lovenox 30 mg SQ daily (WT < 150 kg, CrCl > 10-29 mL/min) *Enoxaparin/Lovenox 30 mg SQ BID (WT < 150 kg, CrCl > 30 mL/min) AND/OR *Sequential Compression Device (SCD) 5 or more Highest Order ONE of the following medications: *Heparin 5000 units SQ TID (Preferred with Epidurals) *Enoxaparin/Lovenox 40 mg SQ daily (WT < 150 kg, CrCl > 30 mL/min) *Enoxaparin/Lovenox 30 mg SQ daily (WT < 150 kg, CrCl > 10-29 mL/min) *Enoxaparin/Lovenox 30 mg SQ BID (WT < 150 kg, CrCl > 30 mL/min) AND *Sequential Compression Device (SCD) Assessment and Plan - Assessment (1) Diabetes Code(s): E11.9 - Type 2 diabetes mellitus without complications Status: Acute (2) Hypertension Code(s): I10 - Essential (primary) hypertension Status: Acute (3) Incarcerated hernia Code(s): K46.0 - Unspecified abdominal hernia with obstruction, without gangrene Status: Acute - Assessment and Plan 42-year-old female with diabetes and hypertension presents to the ED with worsening abdominal pain, found to have incarcerated umbilical hernia. General surgery consulted. Incarcerated hernia POD #1 reduction and repair: - no apparent complications - surgery following - if pain controlled without IV meds today, can go when cleared by surgery Transaminitis did have asymptomatic gall stones, maybe related to above none ordered today, will recheck. likely will need outpatient follow up. Diabetes: - Cont to monitor - Send home with metformin Hypertension: -will restart home diovan Diet: regular diet Fluids: STOP DVTppx: Will start lovenox if stays past today H&P: Quality - VTE Deep Vein Thrombosis/Pulmonary Embolism Present on Admission: No
[2018-04-20] MEDS ORDERED: Enoxaparin Inj 40 MG/0.4 ML Syringe SQ SCH (12:00)
[2018-04-20 12:36] LABS: Albumin 3.4 g/dL (3.4-5.0)
[2018-04-20 12:37] LABS: Total Protein 6.9 g/dL (6.4-8.2)
[2018-04-20 16:22] VITALS: BP 168/80; PULSE 82; RESP 17; TEMP 97.3; O2SAT 98
--- NOTE | 2018-04-20 16:44 | P.PN ---
Subjective Interval history: Feels very well; has passed flatus and had a bowel movement. Physical Exam Vital signs: Vital Signs 04/19/18 17:08 04/19/18 17:27 04/19/18 18:47 Temperature 97.8 F Pulse Rate 88 101 H Respiratory Rate 16 16 Blood Pressure 161/97 H 122/95 H Pulse Oximetry 96 99 04/19/18 19:15 04/19/18 20:00 04/19/18 22:35 Temperature 97.7 F 97.7 F Pulse Rate 84 83 Respiratory Rate 16 18 18 Blood Pressure 153/73 H 139/67 Pulse Oximetry 96 93 L 04/20/18 00:00 04/20/18 02:55 04/20/18 04:00 Temperature 97.7 F 97.9 F Pulse Rate 96 H 84 Respiratory Rate 18 17 17 Blood Pressure 159/72 H 130/72 Pulse Oximetry 93 L 94 L 04/20/18 05:54 04/20/18 08:00 04/20/18 12:00 Temperature 98.3 F 98.2 F Pulse Rate 90 86 Respiratory Rate 18 16 16 Blood Pressure 144/70 H 165/92 H Pulse Oximetry 98 93 L 04/20/18 16:00 Temperature 97.3 F L Pulse Rate 82 Respiratory Rate 17 Blood Pressure 168/80 H Pulse Oximetry 98 Intake & Output 04/19/18 04/20/18 04/20/18 18:59 06:59 18:59 Intake Total 1750 / 1750 1100 / 1100 Output Total 10 / 10 Balance 1740 / 1740 1100 / 1100 Weight 90.718 kg 90.718 kg Intake: IV 1050 / 1050 1000 / 1000 NS Inj 1,000 ML @ 130 mls/hr IV 1000 / 1000 .CONT .Q7H42M [facility] Rx#:[id number] NS Inj 1,000 ML @ Wide Open IV. 1000 / 1000 SIG BOLUS [facility] Rx#:[id number] Ancef 2 GM Premix Inj 2 gm In 50 / 50 50 ml @ 0 mls/hr IV.SIG .STK- [facility] Rx#:[id number] Anesthesia Amount 700 / 700 Other 100 / 100 Output: Estimated Blood Loss 10 Other: Date of Last Bowel Movement 04/19/18 Weight On Admission 90.718 kg - Routine Abdominal Exam Present: soft, wound (Dressing intact; no drainage on 4 x 4 under Tegaderm) Results - Labs CBC & Chem 7: 04/20/18 07:02 04/20/18 07:02 Laboratory Results - last 24 hr 04/19/18 04/20/18 04/20/18 21:40 07:02 07:02 WBC 13.4 H RBC 4.50 Hgb 13.8 Hct 40.8 MCV 90.7 MCH 30.6 MCHC 33.7 RDW 13.0 Plt Count 307 MPV 8.0 Sodium 137 Potassium 4.2 Chloride 102 Carbon Dioxide 24.2 Anion Gap 11 BUN 5 L Creatinine 0.54 Estimated GFR Greater than 89 POC Glucose 218 H Random Glucose 206 H Calcium 8.5 Total Bilirubin Direct Bilirubin Indirect Bilirubin AST ALT Alkaline Phosphatase Total Protein Albumin 04/20/18 04/20/18 04/20/18 07:02 09:24 12:49 WBC RBC Hgb Hct MCV MCH MCHC RDW Plt Count MPV Sodium Potassium Chloride Carbon Dioxide Anion Gap BUN Creatinine Estimated GFR POC Glucose 265 H 263 H Random Glucose Calcium Total Bilirubin 0.4 Direct Bilirubin 0.1 Indirect Bilirubin 0.3 AST 37 ALT 53 Alkaline Phosphatase 98 Total Protein 6.9 D Albumin 3.4 Assessment and Plan - Assessment (1) Incarcerated hernia Code(s): K46.0 - Unspecified abdominal hernia with obstruction, without gangrene Status: Acute Plan: Discharge home today; she is to call Dr. Fuentes for follow-up appointment tomorrow when the office opens. Patient and have not been instructed to contact the office for any increased redness, fever or chills. They agree to comply. - Attending Attestation I attest that I had a [id number] encounter with the patient on the same day, and personally performed and documented my assessment and findings in the medical record. The following services were provided during this hospital visit: Chart data review, vital sign assessments/reviewing monitor data Review of consultation notes if present Medication orders/review and/or management Ordering and/or reviewing lab tests Ordering and/or interpreting/reviewing x-rays and/or diagnostic studies Care of the patient and discussion of the patient with the care team Documentation time To help prompt me to consider important information that might be impacting today's encounter and assessment, Information from prior notes written by myself or my colleagues may have been "brought forward/copy and pasted" into today's note.
--- NOTE | 2018-04-21 10:29 | ECG ---
Date Performed: 04/20/2018 Time Performed: 11:36:04 PTAGE: 42 years EKG: Sinus rhythm WITH MARKED SINUS ARRHYTHMIA BORDERLINE ECG NO PREVIOUS TRACING DOCTOR: Josie Laughlin Interpretating Date/Time 04/21/2018 10:24:39
== END 2018-04-20 17:04 | disposition home or self-care (01) ==
LOC: NEPC 11:07 → NEDA 16:19 → N06 19:30
PROVIDERS: ADMIT Family Medicine; ATTEND Family Medicine